=== PATIENT | male | born 1985 | race African-American/Black ===

== ENCOUNTER 2023-01-04 15:37 | Emergency (ER) | payer MEDICAID, OTHER ==
[~2023-01-04] VITALS: Ht 167.6 cm; Wt 56.0 kg
[2023-01-04 15:41] VITALS: BP 136/83; PULSE 98; RESP 18; TEMP 98.5; O2SAT 100
== END 2023-01-04 22:00 | disposition home or self-care (01) ==
LOC: ER 21:09
DX: S09.90XA Unspecified injury of head, initial encounter (principal); F10.229 Alcohol dependence with intoxication, unspecified; Y90.0 Blood alcohol level of less than 20 mg/100 ml; W18.39XA Other fall on same level, initial encounter; Y93.89 Activity, other specified; Y92.89 Other specified places as the place of occurrence of the external cause; Y99.8 Other external cause status; Z88.0 Allergy status to penicillin
CPT/HCPCS: 82962; 99284